=== PATIENT | male | born 1990 | race Caucasian/White ===

== ENCOUNTER 2022-12-25 10:40 | Inpatient (IN) | payer BC, OTHER ==
[~2022-12-25] VITALS: Ht 190.5 cm; Wt 114.8 kg
--- NOTE | 2022-12-25 11:10 | NUR ---
JAUNDICE NOTICED YESTERDAY
[2022-12-25] MEDS ORDERED: IV NS 0.9% 1,000 ML BAG IV ONE ×2 (11:30→13:30)
--- NOTE | 2022-12-25 11:41 | NUR ---
COVID SWAB TAKEN
[2022-12-25 11:45] LABS: BASOPHILS # (AUTO) 0.1 K/uL (0.0-0.2); BASOPHILS % (AUTO) 0.6 % (0.0-2.0); EOSINOPHILS % (AUTO) 0.2 % (0.0-6.0); HEMATOCRIT 39 % (39-51); LYMPHOCYTES # (AUTO) 0.5 K/uL (0.8-4.8); LYMPHOCYTES % (AUTO) 6.1 % (20.0-44.0); MEAN CORPUSCULAR HGB CONC 36 g/dl (31.0-36.0); MEAN CORPUSCULAR VOLUME 106 fL (80-96); MONOCYTES # (AUTO) 0.5 K/uL (0.1-1.30); MONOCYTES % (AUTO) 5.8 % (2.0-12.0); NEUTROPHILS # (AUTO) 7.7 K/uL (1.8-8.9); NEUTROPHILS % (AUTO) 87.3 % (43.0-81.0); PLATELET COUNT (AUTO) 245 K/uL (150-450); RED BLOOD CELL COUNT(AUTO) 3.71 MIL/uL (4.5-6.0); WHITE BLOOD COUNT (AUTO) 8.8 K/uL (4.3-11.0)
[2022-12-25 12:10] LABS: ALANINE AMINOTRANSFERASE 75 U/L (12-78); ALBUMIN 2.2 g/dL (3.4-5.0); ALKALINE PHOSPHATASE 447 U/L (46-116); ASPARTATE AMINOTRANSFERASE 635 U/L (15-37); BILIRUBIN,DIRECT 20.8 mg/dL (0.0-0.2); BILIRUBIN,TOTAL 25.7 mg/dL (0.2-1.0); CALCIUM, SERUM 8.2 mg/dL (8.5-10.1); CARBON DIOXIDE 27 mmol/L (21-32); CREATININE 0.8 mg/dL (0.6-1.3); GLUCOSE 106 mg/dL (74-106); LIPASE 830 U/L (73-393); UREA NITROGEN, BLOOD 5 mg/dL (7-18)
[2022-12-25] MEDS ORDERED: IOHEXOL-300 100 ML VIAL IV ONE (12:31)
[2022-12-25] MEDS ORDERED: IV NS 0.9% 250 ML IV ONE (12:32)
[2022-12-25 13:02] LABS: CHLORIDE 73 mmol/L (98-107)
[2022-12-25 13:04] LABS: POTASSIUM 2.6 mmol/L (3.5-5.1)
[2022-12-25 13:15] LABS: SODIUM SERUM 115 mmol/L (136-145)
[2022-12-25] MEDS ORDERED: POTASSIUM CHLORIDE 20 MEQ POWDER PACKET PO ONE (13:30)
[2022-12-25] MEDS ORDERED: Calcium Gluconate 1GM/10ML 4.65 MEQ in IV NS 0.9% 100 ML IV ONE (13:30)
[2022-12-25] MEDS ORDERED: POTASSIUM CHLORIDE 20 MEQ POWDER PACKET ONE (14:22)
[2022-12-25 15:30] LABS: LYMPHOCYTES % (MANUAL) 5 % (16-48); MONOCYTES % (MANUAL) 5 % (0-11.0); NEUTROPHILS % (MANUAL) 90 (42-76)
[2022-12-25] MEDS ORDERED: ZOLPIDEM TARTRATE 5 MG TABLET PO PRN (17:00)
[2022-12-25] MEDS ORDERED: MAGNESIUM HYDROXIDE 30 ML UDC PO PRN (17:00)
[2022-12-25] MEDS ORDERED: MAG HYDROX/AL HYDROX/SIMETH 30 ML UDC PO PRN (17:00)
[2022-12-25] MEDS ORDERED: ACETAMINOPHEN 325 MG TABLET PO PRN (17:00)
[2022-12-25] MEDS ORDERED: Z GUARD REMEDY 4 OZ OINT TP PRN (17:00)
[2022-12-25] MEDS ORDERED: ONDANSETRON HCL/PF 4 MG/2 ML VIAL IVP PRN (17:00)
[2022-12-25 17:43] LABS: CALCIUM, SERUM 7.7 mg/dL (8.5-10.1); CREATININE 0.8 mg/dL (0.6-1.3); POTASSIUM 3.3 mmol/L (3.5-5.1)
--- NOTE | 2022-12-25 18:20 | NUR ---
BED 119-1
[2022-12-25] MEDS ORDERED: LORAZEPAM INJ 2 MG/ML VIAL IV PRN (19:00)
--- NOTE | 2022-12-25 19:22 | NUR ---
admitting informed about bed assignment
--- NOTE | 2022-12-25 19:40 | NUR ---
CALLED THE NURSE, WANT TO GET REPORT AFTER CHANGE OF SHIFT.
--- NOTE | 2022-12-25 19:50 | NUR ---
report given to jonny
--- NOTE | 2022-12-25 19:52 | NUR ---
RECEIVED REPORT FROM HECTOR STOVALL
--- NOTE | 2022-12-25 19:59 | NUR ---
transferred to first floor under acls
[2022-12-25 20:00] VITALS: BP 130/79
--- NOTE | 2022-12-25 20:05 | NUR ---
ADMISSION NOTES ADMITTED A 32-YEAR-OLD MALE PATIENT VIA GURNEY, ACCOMPANIED BY 2 ED PERSONNEL WITH PRIMARY DIAGNOSIS OF LIVER FAILURE. PATIENT IS AAO X4, ON ROOM AIR, BREATHING EVEN AND UNLABORED. IV ACCESS ON RIGHT WRIST #20, INATCT AND FLUSHING WELL. ON TELE MONITOR ST WITH HR OF 110. PATIENT IS AMBULATORY WITH [facility]. SKIN ASSESSMENT DONE, INTACT, BUT HAS PSORIASIS ON MOST PARTS OF HIS BODY. DENIES PAIN AT THIS TIME. BELONGINGS CHECKED AND LIST PLACED ON THE CHART, VS TAKEN AND RECORDED. SAFETY PRECAUTIONS IN PLACE: BED LOCKED AND IN LOWEST POSITION, SIDE RAILS UP X2, CALL LIGHT WITHIN REACH.
[2022-12-25] MEDS: IV NS 0.9% 1,000 ML IV PRN (20:40)
[2022-12-25] MEDS: PANTOPRAZOLE 40 MG VIAL IV SCH (20:40)
[2022-12-26] VITALS: BP 106/66
[2022-12-26] MEDS: IV NS 0.9% 1,000 ML IV PRN ×2 (03:53→12:29)
[2022-12-26 04:00] VITALS: BP 100/54
[2022-12-26 06:10] LABS: BASOPHILS # (AUTO) 0.1 K/uL (0.0-0.2); BASOPHILS % (AUTO) 1.4 % (0.0-2.0); EOSINOPHILS % (AUTO) 0.3 % (0.0-6.0); HEMATOCRIT 34 % (39-51); HEMOGLOBIN 12.2 g/dL (13.5-17.5); LYMPHOCYTES # (AUTO) 0.7 K/uL (0.8-4.8); LYMPHOCYTES % (AUTO) 9.4 % (20.0-44.0); MEAN CORPUSCULAR HGB CONC 36 g/dl (31.0-36.0); MEAN CORPUSCULAR VOLUME 107 fL (80-96); MONOCYTES # (AUTO) 0.5 K/uL (0.1-1.30); MONOCYTES % (AUTO) 7.3 % (2.0-12.0); NEUTROPHILS % (AUTO) 81.6 % (43.0-81.0); PLATELET COUNT (AUTO) 192 K/uL (150-450); RED BLOOD CELL COUNT(AUTO) 3.19 MIL/uL (4.5-6.0); WHITE BLOOD COUNT (AUTO) 7.4 K/uL (4.3-11.0)
[2022-12-26 06:26] LABS: ALBUMIN 1.7 g/dL (3.4-5.0); BILIRUBIN,TOTAL 20.9 mg/dL (0.2-1.0); CALCIUM, SERUM 7.8 mg/dL (8.5-10.1); MAGNESIUM 1.3 mg/dL (1.8-2.4); PHOSPHORUS 2.2 mg/dL (2.5-4.9); TOTAL PROTEIN, SERUM 5.8 g/dL (6.4-8.2)
--- NOTE | 2022-12-26 07:04 | NUR ---
BRANCH OR DEPARTMENT CHIEF LIBRARIAN CLOSING NOTE PATIENT ASLEEP, BUT EASY TO AROUSE, AAO X4, ON ROOM AIR, BREATHING EVEN AND UNLABORED. IV ACCESS ON RIGHT WRIST #20G, INTACT AND FLUSHING WELL, INFUSING NS AT 150 ML/HR. ON TELE MONITOR ST WITH HR OF 110. PATIENT IS AMBULATORY WITH [facility]. DENIES PAIN AT THIS TIME. ALL DUE MEDS WERE GIVEN AND NEEDS ATTENDED. SAFETY PRECAUTIONS MAINTAINED: BED LOCKED AND IN LOWEST POSITION, SIDE RAILS UP X2, CALL LIGHT WITHIN REACH. WILL ENDORSE TO ONCOMING NURSE FOR JORDI.
--- NOTE | 2022-12-26 07:05 | NUR ---
TRADING FLOOR OPERATOR CLOSING NOTE RECEIVED PATIENT IN BED ASLEEP BUT EASILY AROUSABLE, AAO X4, ON ROOM AIR, BREATHING EVEN AND UNLABORED. IV ACCESS ON RIGHT WRIST #20G, INTACT AND FLUSHING WELL, INFUSING NS AT 150 ML/HR. ON TELE MONITOR ST . PATIENT IS AMBULATORY WITH [facility]. DENIES PAIN AT THIS TIME. . SAFETY PRECAUTIONS MAINTAINED: BED LOCKED AND IN LOWEST POSITION, SIDE RAILS UP X2, CALL LIGHT WITHIN REACH. WILL MONITOR.
[2022-12-26 08:00] VITALS: BP 101/64
[2022-12-26] MEDS ORDERED: CHLORDIAZEPOXIDE HCL 25 MG CAPSULE PO ONE (09:00)
[2022-12-26] MEDS: PANTOPRAZOLE 40 MG VIAL IV SCH ×2 (09:12→21:37)
--- NOTE | 2022-12-26 10:12 | NUR ---
SW Consult: SW consult requested for patient possible substance abuse. Patient was brought in due to Liver Failure. Patient presented with a flat affect. He was making minimal eye contact. Patient presents alert and oriented x3 (self,place,time). Patient reported he was brought to the hospital due to overdrinking. Patient reported that he has been drinking the since the age of 14 and has been drinking vodka everyday. 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 He stated that he lives home alone located at [address], [place] [address]; ([phone]). Patient was vague with his answers he said "yes or no". He stated that he will stop drinking and is deciding to quit. SW assessed for suicidal or homicidal, pt denied. SW assessed any hallucinations visual/auditory, pt denied. SW assessed for substance abuse and pt expressed that he drinks daily. Pt denied any use of drugs. SW offered pt resources and pt was accepting of substance abuse referrals. DC Plan: Patient will dc back home when stable [address], [place] [address]; ([phone]). Substance Abuse resources provided included: [facility] Substance Abuse Self-Helpline ([facility]) ; [facility] [address] [facility] [place] [id number] ; [facility] [address] [facility] [address] ; [facility] [address] [facility] [address] ; [facility] [address] [facility] [address] ; [facility] [address] [address] ; [facility] [address] [facility] [address] ; [facility] Substance Abuse Helpline([facility] ; [facility] ; [facility] [place]; [facility] [place]; [facility] [place]; [facility] [place]; [facility] [place]; [facility] Cyn[place]; [facility], [facility]. Elijah Helton; Alcoholics Anonymous -[facility]; [facility] ; Marijuana Anonymous [facility]; Narcotics Anonymous www.na.org;
[2022-12-26] MEDS: POTASSIUM CL. PREMIX PERIPHER. 50 ML IV SCH ×6 (10:39→16:00)
[2022-12-26] MEDS: Magnesium 1GM/D5W 100ML PREMIX 100 ML IV SCH ×4 (10:39→13:39)
[2022-12-26 12:00] VITALS: BP 111/75
[2022-12-26] MEDS ORDERED: LACTULOSE 10 G/15 ML UDC (PYXIS) PO ONE (12:00)
[2022-12-26] MEDS ORDERED: Sodium Phosphate 15 MMOL in IV NS 0.9% 245 ML IV ONE (13:00)
[2022-12-26 16:00] VITALS: BP 117/72
[2022-12-26] MEDS ORDERED: NA PHOS,M-B/NA PHOS,DI-BA 1 EA ENEMA RC ONE (17:15)
--- NOTE | 2022-12-26 19:30 | NUR ---
POULTRY FEED SUPERVISOR OPENING NOTE RECEIVED PATIENT IN BED, AWAKE, AAO X4, ON ROOM AIR, BREATHING EVEN AND UNLABORED. IV ACCESS ON RIGHT WRIST #20G, INTACT AND FLUSHING WELL, INFUSING NS AT 150 ML/HR. ON TELE MONITOR ST/SR. PATIENT IS AMBULATORY WITH [facility]. DENIES PAIN AT THIS TIME. SAFETY PRECAUTIONS IN PLACE: BED LOCKED AND IN LOWEST POSITION, SIDE RAILS UP X2, CALL LIGHT WITHIN REACH.
--- NOTE | 2022-12-26 19:42 | NUR ---
OFFICE EQUIPMENT TECHNICIAN CLOSING NOTE PATIENT in bed awake, AAO X4, ON ROOM AIR, BREATHING EVEN AND UNLABORED. IV ACCESS ON RIGHT WRIST #20G, INTACT AND FLUSHING WELL, INFUSING NS AT 150 ML/HR. ON TELE MONITOR ST/SR. PATIENT IS AMBULATORY WITH [facility]. DENIES PAIN AT THIS TIME. ALL DUE MEDS WERE GIVEN AND NEEDS ATTENDED. SAFETY PRECAUTIONS MAINTAINED: BED LOCKED AND IN LOWEST POSITION, SIDE RAILS UP X2, CALL LIGHT WITHIN REACH. WILL ENDORSE TO ONCOMING NURSE FOR JORDI.
[2022-12-26 20:00] VITALS: BP 107/72
[2022-12-27] VITALS: BP 121/81
[2022-12-27 04:00] VITALS: BP 118/94
[2022-12-27 06:23] LABS: BASOPHILS % (AUTO) 0.3 % (0.0-2.0); EOSINOPHILS % (AUTO) 1.5 % (0.0-6.0); HEMATOCRIT 34 % (39-51); HEMOGLOBIN 12.1 g/dL (13.5-17.5); LYMPHOCYTES # (AUTO) 0.8 K/uL (0.8-4.8); LYMPHOCYTES % (AUTO) 8.2 % (20.0-44.0); MEAN CORPUSCULAR HGB CONC 36 g/dl (31.0-36.0); MEAN CORPUSCULAR VOLUME 107 fL (80-96); MONOCYTES # (AUTO) 0.6 K/uL (0.1-1.30); MONOCYTES % (AUTO) 6.2 % (2.0-12.0); NEUTROPHILS # (AUTO) 7.8 K/uL (1.8-8.9); NEUTROPHILS % (AUTO) 83.8 % (43.0-81.0); PLATELET COUNT (AUTO) 196 K/uL (150-450); RED BLOOD CELL COUNT(AUTO) 3.14 MIL/uL (4.5-6.0); WHITE BLOOD COUNT (AUTO) 9.3 K/uL (4.3-11.0)
[2022-12-27 06:50] LABS: ALBUMIN 1.6 g/dL (3.4-5.0); BILIRUBIN,TOTAL 21.7 mg/dL (0.2-1.0); CALCIUM, SERUM 7.5 mg/dL (8.5-10.1); MAGNESIUM 1.8 mg/dL (1.8-2.4); TOTAL PROTEIN, SERUM 5.8 g/dL (6.4-8.2)
--- NOTE | 2022-12-27 07:21 | NUR ---
BAFFLE INSTALLER CLOSING NOTE PATIENT IN BED, AWAKE, AAO X4, ON ROOM AIR, BREATHING EVEN AND UNLABORED. IV ACCESS ON RIGHT WRIST #20G, INTACT AND FLUSHING WELL, INFUSING NS AT 150 ML/HR. ON TELE MONITOR ST/SR. PATIENT IS AMBULATORY WITH [facility]. DENIES PAIN AT THIS TIME. SAFETY PRECAUTIONS IN PLACE: BED LOCKED AND IN LOWEST POSITION, SIDE RAILS UP X2, CALL LIGHT WITHIN REACH. WILL ENDORSE TO ONCOMING NURSE FOR JORDI.
[2022-12-27 07:27] LABS: POTASSIUM 2.7 mmol/L (3.5-5.1)
--- NOTE | 2022-12-27 07:30 | NUR ---
MANAGEMENT PROFESSIONAL OPENING NOTES RECEIVED PATIENT ON BED AWAKE AND A/O X4. ON ROOM AIR TOLERATING WELL. NO SOB NOTED. NOT IN DISTRESS. WITH NO COMPLAINTS OF PAIN OR DISCOMFORT AT THIS TIME. ON TELE MONITOR CURRENTLY READING SINUS TACHYCARDIA AT 102BPM. WITH IV ACCESS AT THE RIGHT WRIST G20 WITH IVF NS AT 150ML/HR INFUSING WELL. WITH GENERALIZED JAUNDICE SKIN AND YELLOWISH CONJUNCTIVA OF THE EYES. SAFETY MEASURES IN PLACED. CALL LIGHT WITHIN REACH. BED ON LOWEST LOCKED POSITION, SIDE RAILS UP X2. WILL CONTINUE TO MONITOR.
[2022-12-27 08:00] VITALS: BP 112/74
[2022-12-27] MEDS: PANTOPRAZOLE 40 MG VIAL IV SCH ×2 (09:45→21:44)
[2022-12-27 12:00] VITALS: BP 105/65
[2022-12-27 16:00] VITALS: BP 114/66
[2022-12-27] MEDS ORDERED: POTASSIUM CHLORIDE 10 MEQ/50 ML PREMIXED IVPB FOR PERIPHERAL LINE IV SCH (17:30)
[2022-12-27] MEDS: POTASSIUM CHLORIDE 10 MEQ/50 ML PREMIXED IVPB FOR PERIPHERAL LINE IV SCH ×4 (18:45→22:08)
[2022-12-27] MEDS: IV NS 0.9% 1,000 ML IV PRN (19:03)
--- NOTE | 2022-12-27 19:30 | NUR ---
LOAN ASSISTANT CLOSING NOTES PATIENT ON BED AWAKE AND A/O X4. ON ROOM AIR TOLERATING WELL. NO SOB NOTED. NOT IN DISTRESS. WITH NO COMPLAINTS OF PAIN OR DISCOMFORT AT THIS TIME. ON TELE MONITOR CURRENTLY READING SINUS TACHYCARDIA AT 107BPM. WITH IV ACCESS AT THE RIGHT WRIST G20 WITH IVF NS AT 150ML/HR INFUSING WELL. STARTED 1ST BAG OF POTASSIUM CHLORIDE 10MEQ IV. WITH GENERALIZED JAUNDICE SKIN AND YELLOWISH CONJUNCTIVA OF THE EYES. DUE MEDS GIVEN. SAFETY MEASURES IN PLACED. CALL LIGHT WITHIN REACH. BED ON LOWEST LOCKED POSITION, SIDE RAILS UP X2. WILL ENDORSE TO NEXT SHIFT FOR JORDI.
[2022-12-27 20:00] VITALS: BP 144/79
[2022-12-28] VITALS: BP 136/79
[2022-12-28] MEDS: POTASSIUM CHLORIDE 10 MEQ/50 ML PREMIXED IVPB FOR PERIPHERAL LINE IV SCH ×3 (00:02→05:18)
[2022-12-28 04:00] VITALS: BP 136/74
--- NOTE | 2022-12-28 07:25 | NUR ---
SUPERVISOR PARTIAL DENTURE DEPARTMENT OPENING NOTE RECEIVED PATIENT ON BED AWAKE. PATIENT IS ALERT/ ORIENTED X4. ON ROOM AIR TOLERATING WELL, WITH NO SIGNS OF RESPIRATORY DISTRESS. NO COMPLAINT OF PAIN OR DISCOMFORT AT THIS TIME. ON TELE MONITOR CURRENTLY READING SINUS RHYTHYM AT 98 BPM. WITH IV ACCESS AT THE RIGHT WRIST G20 WITH IVF NS AT 150ML/HR INFUSING WELL. WITH GENERALIZED JAUNDICE SKIN AND ICTERIC CONJUNCTIVA OF THE EYES. SAFETY MEASURES IN PLACED. CALL LIGHT WITHIN REACH. BED ON LOWEST LOCKED POSITION, SIDE RAILS UP X2. WILL CONTINUE WITH PLAN OF CARE.
[2022-12-28 07:40] LABS: BASOPHILS # (AUTO) 0.1 K/uL (0.0-0.2); BASOPHILS % (AUTO) 0.6 % (0.0-2.0); HEMATOCRIT 34 % (39-51); HEMOGLOBIN 11.9 g/dL (13.5-17.5); LYMPHOCYTES # (AUTO) 0.9 K/uL (0.8-4.8); MEAN CORPUSCULAR HGB CONC 36 g/dl (31.0-36.0); MEAN CORPUSCULAR VOLUME 108 fL (80-96); MONOCYTES # (AUTO) 0.6 K/uL (0.1-1.30); MONOCYTES % (AUTO) 7.5 % (2.0-12.0); NEUTROPHILS # (AUTO) 6.9 K/uL (1.8-8.9); NEUTROPHILS % (AUTO) 79.9 % (43.0-81.0); PLATELET COUNT (AUTO) 205 K/uL (150-450); WHITE BLOOD COUNT (AUTO) 8.6 K/uL (4.3-11.0)
[2022-12-28 07:51] LABS: ALBUMIN 1.6 g/dL (3.4-5.0); BILIRUBIN,TOTAL 22.2 mg/dL (0.2-1.0); CALCIUM, SERUM 7.7 mg/dL (8.5-10.1); POTASSIUM 3.1 mmol/L (3.5-5.1); TOTAL PROTEIN, SERUM 5.8 g/dL (6.4-8.2)
[2022-12-28 08:00] VITALS: BP 111/65
[2022-12-28] MEDS: PANTOPRAZOLE 40 MG VIAL IV SCH ×2 (10:11→21:30)
[2022-12-28 12:00] VITALS: BP 111/67
[2022-12-28] MEDS: POTASSIUM CL. PREMIX PERIPHER. 50 ML IV SCH ×4 (12:16→16:34)
[2022-12-28] MEDS ORDERED: POLYVINYL ALCOHOL 15 ML BOTTLE EACHEYE PRN (13:00)
--- NOTE | 2022-12-28 15:20 | NUR ---
MS RN NOTE PATIENT BACK FROM DC HIDA SCAN, PER TECH, HE WILL NEED 2 MORE HOURS TO RE-SCAN THE PATIENT. PATIENT STILL NEEDS TO BE NPO. PATIENT KEPT NPO FOR THE MEANTIME ORDERED. IN STABLE CONDITION.
[2022-12-28 16:00] VITALS: BP 113/74
[2022-12-28] MEDS: IV NS 0.9% 1,000 ML IV PRN (16:53)
--- NOTE | 2022-12-28 17:25 | NUR ---
NM HIDA SCAN WAS COMPLETED. TECH:RB
--- NOTE | 2022-12-28 19:04 | NUR ---
MS RN OPENING NOTE PATIENT ON BED AWAKE. PATIENT IS ALERT/ ORIENTED X4. ON ROOM AIR TOLERATING WELL, WITH NO SIGNS OF RESPIRATORY DISTRESS. NO COMPLAINT OF PAIN OR DISCOMFORT AT THIS TIME. IV ACCESS OUT. FOR MIDLINE INSERTION, AWAITING MIDLINE NURSE. DELAYED IVF AND KCL CORRECTION BECAUSE OF INFILTRATED IV. WITH GENERALIZED JAUNDICE SKIN AND ICTERIC CONJUNCTIVA OF THE EYES. SAFETY MEASURES IN PLACED. CALL LIGHT WITHIN REACH. BED ON LOWEST LOCKED POSITION, SIDE RAILS UP X2. WILL ENDORSE TO NEXT SHIFT FOR CONTINUITY OF CARE.
--- NOTE | 2022-12-28 19:45 | NUR ---
MS RN OPENING NOTE RECEIVED PATIENT IN BED, AWAKE, AAO X4, ON ROOM AIR, TOLERATING WELL, NO SOB/DISTRESS NOTED. NO COMPLAINT OF PAIN OR DISCOMFORT AT THIS TIME. IV ACCESS OUT. FOR MIDLINE INSERTION, AWAITING MIDLINE NURSE. DELAYED IVF AND KCL CORRECTION BECAUSE OF INFILTRATED IV. SAFETY MEASURES IN PLACE: BED LOCKED AND IN LOWEST LOCKED POSITION, CALL LIGHT WITHIN REACH, SIDE RAILS UP X2.
[2022-12-28 20:00] VITALS: BP 139/81
--- NOTE | 2022-12-28 21:30 | NUR ---
MS RN NOTE KAREN MIDLINE INSERTED BY MIDLINE NURSE, INTACT AND FLUSHES WELL.
[2022-12-29 04:00] VITALS: BP 122/72
[2022-12-29] MEDS: IV NS 0.9% 1,000 ML IV PRN ×3 (04:27→20:11)
--- NOTE | 2022-12-29 07:08 | NUR ---
MS RN CLOSING NOTE PATIENT IN BED, AWAKE, AAO X4, ON ROOM AIR, TOLERATING WELL, NO SOB/DISTRESS NOTED. NO COMPLAINT OF PAIN OR DISCOMFORT AT THIS TIME. IV ACCESS ON KAREN MIDLINE INFUSING NS AT 150 ML/HR. ALL DUE MEDS WERE GIVEN AND NEEDS ATTENDED. VSS. SAFETY MEASURES MAINTAINED: BED LOCKED AND IN LOWEST LOCKED POSITION, CALL LIGHT WITHIN REACH, SIDE RAILS UP X2. WILL ENDORSE TO ONCOMING NURSE FOR JORDI.
[2022-12-29 07:13] LABS: BASOPHILS # (AUTO) 0.3 K/uL (0.0-0.2); BASOPHILS % (AUTO) 3.9 % (0.0-2.0); EOSINOPHILS % (AUTO) 1.9 % (0.0-6.0); HEMATOCRIT 32 % (39-51); HEMOGLOBIN 11.2 g/dL (13.5-17.5); LYMPHOCYTES % (AUTO) 11.1 % (20.0-44.0); MEAN CORPUSCULAR HGB CONC 35 g/dl (31.0-36.0); MEAN CORPUSCULAR VOLUME 109 fL (80-96); MONOCYTES # (AUTO) 0.9 K/uL (0.1-1.30); MONOCYTES % (AUTO) 10.6 % (2.0-12.0); NEUTROPHILS # (AUTO) 6.3 K/uL (1.8-8.9); NEUTROPHILS % (AUTO) 72.5 % (43.0-81.0); PLATELET COUNT (AUTO) 207 K/uL (150-450); RED BLOOD CELL COUNT(AUTO) 2.92 MIL/uL (4.5-6.0); WHITE BLOOD COUNT (AUTO) 8.7 K/uL (4.3-11.0)
[2022-12-29 07:34] LABS: BILIRUBIN,DIRECT 15.8 mg/dL (0.0-0.2); BILIRUBIN,TOTAL 20.7 mg/dL (0.2-1.0); CALCIUM, SERUM 7.3 mg/dL (8.5-10.1); CREATININE 0.8 mg/dL (0.6-1.3); POTASSIUM 3.1 mmol/L (3.5-5.1); TOTAL PROTEIN, SERUM 5.3 g/dL (6.4-8.2)
[2022-12-29 07:35] LABS: ALBUMIN 1.4 g/dL (3.4-5.0)
--- NOTE | 2022-12-29 07:45 | NUR ---
MS RN OPENING NOTE RECEIVED PATIENT ON BED AWAKE. PATIENT IS ALERT/ ORIENTED X4. ON ROOM AIR TOLERATING WELL, WITH NO SIGNS OF PAIN OR DISCOMFORT AT THIS TIME. WITH GENERALIZED JAUNDICE SKIN .IV ACCESS ON R UPPER ARM MIDLINE. IV INTACT, PATENT, FLUSHES WELL. ALL SAFETY MEASURES IN PLACE. CALL LIGHT WITHIN REACH. BED ON LOWEST LOCKED POSITION,BEDSIDE TABLE NEXT TO PATIENT. SIDE RAILS UP X2.
[2022-12-29 08:00] VITALS: BP 117/70
[2022-12-29] MEDS: PANTOPRAZOLE 40 MG VIAL IV SCH ×2 (08:08→20:11)
--- NOTE | 2022-12-29 09:57 | NUR ---
star note notified RICHARD wolf that potassium 3.1. ordered 40 meq po x one time Addendum: 12/29/22 at 1049 by HOLLIE BELL RN asked if potassium can be switched to iv. richard yuen ok
[2022-12-29] MEDS ORDERED: POTASSIUM CHLORIDE 20 MEQ TAB.PRT.SR PO ONE (10:30)
[2022-12-29] MEDS: POTASSIUM CL. PREMIX PERIPHER. 50 ML IV SCH ×4 (11:07→16:58)
[2022-12-29 16:00] VITALS: BP 111/70
--- NOTE | 2022-12-29 16:24 | NUR ---
rn note pt went for MRCP wo contrast
--- NOTE | 2022-12-29 19:18 | NUR ---
MS RN CLOSING NOTE PATIENT IN BED AWAKE. PATIENT IS ALERT/ ORIENTED X4. ON ROOM AIR TOLERATING WELL, WITH 02 AT 100%. NO SIGNS OF PAIN OR DISCOMFORT AT THIS TIME. WITH GENERALIZED JAUNDICE SKIN AND ICTERIC CONJUNCTIVA OF THE EYES. R UPPER ARM MIDLINE. IV INTACT, PATENT, FLUSHES WELL. ALL SAFETY MEASURES IN PLACE. CALL LIGHT WITHIN REACH. BED ON LOWEST LOCKED POSITION,BEDSIDE TABLE NEXT TO PATIENT.BED ALARM ON. SIDE RAILS UP X2. ENDORSED TO BUS MATRON RN FOR CONUTITY OF CARE
--- NOTE | 2022-12-29 19:45 | NUR ---
MS RN OPENING NOTE RECEIVED PATIENT IN BED, AWAKE, AAO X4, ON ROOM AIR TOLERATING WELL. NO SIGNS OF PAIN OR DISCOMFORT AT THIS TIME. WITH GENERALIZED JAUNDICE SKIN AND ICTERIC CONJUNCTIVA. KAREN MIDLINE RUNNING NS AT 150 ML/HR, INTACT, AND FLUSHES WELL. ALL SAFETY MEASURES IN PLACE: BED LOCKED AND IN LOWEST POSITION, CALL LIGHT WITHIN REACH, SIDE RAILS UP X2.
[2022-12-29 20:00] VITALS: BP 100/71
[2022-12-30 02:42] LABS: BILIRUBIN,URINE 3+ (NEGATIVE); COLOR,URINE AMBER (YELLOW); LEUKOCYTE ESTERASE ,URINE NEGATIVE (NEGATIVE); NITRITE, URINE NEGATIVE (NEGATIVE); PROTEIN,URINE NEGATIVE (NEGATIVE); UGLUCOSE TRACE mg/dL (NEGATIVE); UROBILINOGEN,URINE 0.2 EU/dL (0.2)
[2022-12-30 02:47] LABS: BACTERIA,URINE Rare /HPF (None Seen); RBC,URINE 0-2 /HPF (0-2); SQUAMOUS EPITHELIAL CELL,UR Few /HPF (None Seen); WBC,URINE 0-2 /HPF (0-3)
[2022-12-30] MEDS: IV NS 0.9% 1,000 ML IV PRN ×3 (03:12→17:37)
[2022-12-30 04:00] VITALS: BP 123/74
[2022-12-30 06:26] LABS: BASOPHILS # (AUTO) 0.2 K/uL (0.0-0.2); BASOPHILS % (AUTO) 2.4 % (0.0-2.0); EOSINOPHILS % (AUTO) 2.7 % (0.0-6.0); HEMATOCRIT 32 % (39-51); HEMOGLOBIN 11.2 g/dL (13.5-17.5); LYMPHOCYTES # (AUTO) 0.9 K/uL (0.8-4.8); LYMPHOCYTES % (AUTO) 10.6 % (20.0-44.0); MEAN CORPUSCULAR HGB CONC 35 g/dl (31.0-36.0); MEAN CORPUSCULAR VOLUME 110 fL (80-96); MONOCYTES # (AUTO) 1.1 K/uL (0.1-1.30); MONOCYTES % (AUTO) 11.8 % (2.0-12.0); NEUTROPHILS # (AUTO) 6.4 K/uL (1.8-8.9); NEUTROPHILS % (AUTO) 72.5 % (43.0-81.0); PLATELET COUNT (AUTO) 214 K/uL (150-450); RED BLOOD CELL COUNT(AUTO) 2.89 MIL/uL (4.5-6.0); WHITE BLOOD COUNT (AUTO) 8.9 K/uL (4.3-11.0)
[2022-12-30 06:37] LABS: BILIRUBIN,TOTAL 20.9 mg/dL (0.2-1.0); CALCIUM, SERUM 7.5 mg/dL (8.5-10.1); CREATININE 0.8 mg/dL (0.6-1.3); POTASSIUM 3.2 mmol/L (3.5-5.1); TOTAL PROTEIN, SERUM 5.4 g/dL (6.4-8.2)
[2022-12-30 06:41] LABS: ALBUMIN 1.4 g/dL (3.4-5.0)
--- NOTE | 2022-12-30 07:04 | NUR ---
MS RN CLOSING NOTE PATIENT IN BED, AWAKE, AAO X4, ON ROOM AIR TOLERATING WELL. NO SIGNS OF PAIN OR DISCOMFORT AT THIS TIME. WITH GENERALIZED JAUNDICE SKIN AND ICTERIC CONJUNCTIVA. KAREN MIDLINE RUNNING NS AT 150 ML/HR, INTACT, AND FLUSHES WELL. PATIENT IS AMBULATORY WITH [facility]. ALL DUE MEDS WERE GIVEN AND NEEDS ATTENDED. SAFETY MEASURES IN PLACE: BED LOCKED AND IN LOWEST POSITION, CALL LIGHT WITHIN REACH, SIDE RAILS UP X2. WILL ENDORSE TO ONCOMING NURSE FOR JORDI.
[2022-12-30 08:00] VITALS: BP 109/69
[2022-12-30 09:07] LABS: HEPATITIS Be AB Negative (Negative)
[2022-12-30] MEDS: PANTOPRAZOLE 40 MG VIAL IV SCH (10:20)
[2022-12-30] MEDS: CALCIUM CARB 600MG /VIT D 1 EACH TABLET PO SCH (10:20)
[2022-12-30] MEDS: POTASSIUM CHLORIDE 20 MEQ TAB.PRT.SR PO SCH ×2 (13:10→15:06)
[2022-12-30 16:00] VITALS: BP 114/72
--- NOTE | 2022-12-30 19:18 | NUR ---
MS RN CLOSING NOTE PATIENT IN BED, AWAKE, AO X4, ON ROOM AIR TOLERATING WELL. NO SIGNS OF PAIN OR DISCOMFORT AT THIS TIME. GENERALIZED JAUNDICE SKIN WITH PSORIASIS. KAREN MIDLINE RUNNING NS AT 150 ML/HR, INTACT, AND FLUSHES WELL. PATIENT IS AMBULATORY WITH [facility]. ALL DUE MEDS WERE GIVEN AND NEEDS ATTENDED. SAFETY MEASURES IN PLACE: BED LOCKED AND IN LOWEST POSITION, CALL LIGHT WITHIN REACH, SIDE RAILS UP X2. WILL ENDORSE TO ONCOMING NURSE FOR JORDI.
--- NOTE | 2022-12-30 19:30 | NUR ---
MS RN OPENING NOTE RECEIVED PATIENT RESTING IN BED. AFEBRILE AND NOT IN ANY FORM OF ACUTE DISTRESS. BREATHING EVEN AND NON LABORED. NO C/O PAIN OR DISCOMFORT AT THIS TIME. WITH IV ACCESS ON KAREN MIDLINE RUNNING WITH NS AT 150ML/HR. MAINTAINED ON FULL LIQUID DIET ORDERED. SAFETY MEASURES IN PLACE. KEPT BED IN LOCKED AND IN LOW POSITION. SIDE RAILS UP X2. ADVISED TO USE THE CALL LIGHT WHEN IN NEED OF ASSISTANCE.
[2022-12-30 20:00] VITALS: BP 118/83
[2022-12-30] MEDS: PANTOPRAZOLE 40 MG TABLET.DR PO SCH (20:17)
[2022-12-31] MEDS: IV NS 0.9% 1,000 ML IV PRN ×2 (00:03→06:36)
[2022-12-31 04:00] VITALS: BP 117/72
--- NOTE | 2022-12-31 06:27 | NUR ---
MS RN CLOSING NOTE PATIENT IN BED, ASLEEP BUT EASY TO AROUSE AND RESPONSIVE. ABLE TO MAKE NEEDS KNOWN. AFEBRILE AND NOT IN ANY FORM OF ACUTE DISTRESS. BREATHING EVEN AND NON LABORED. NO C/O PAIN OR DISCOMFORT THROUGHOUT THE SHIFT. WITH IV ACCESS ON KAREN MIDLINE RUNNING WITH NS AT 150ML/HR. MAINTAINED ON FULL LIQUID DIET ORDERED. MEDICATED ORDERED. SAFETY MEASURES IN PLACE. KEPT BED IN LOCKED AND IN LOW POSITION. SIDE RAILS UP X2. ADVISED TO USE THE CALL LIGHT WHEN IN NEED OF ASSISTANCE. ALL NURSING NEEDS ATTENDED. ENDORSED TO INCOMING SHIFT FOR CONTINUITY OF CARE.
[2022-12-31 06:29] LABS: BASOPHILS # (AUTO) 0.2 K/uL (0.0-0.2); BASOPHILS % (AUTO) 1.9 % (0.0-2.0); EOSINOPHILS % (AUTO) 2.3 % (0.0-6.0); HEMATOCRIT 32 % (39-51); HEMOGLOBIN 11.3 g/dL (13.5-17.5); LYMPHOCYTES # (AUTO) 1.1 K/uL (0.8-4.8); LYMPHOCYTES % (AUTO) 12.7 % (20.0-44.0); MEAN CORPUSCULAR HGB CONC 35 g/dl (31.0-36.0); MEAN CORPUSCULAR VOLUME 110 fL (80-96); MONOCYTES # (AUTO) 1.2 K/uL (0.1-1.30); MONOCYTES % (AUTO) 13.7 % (2.0-12.0); NEUTROPHILS # (AUTO) 5.9 K/uL (1.8-8.9); NEUTROPHILS % (AUTO) 69.4 % (43.0-81.0); PLATELET COUNT (AUTO) 226 K/uL (150-450); RED BLOOD CELL COUNT(AUTO) 2.95 MIL/uL (4.5-6.0); WHITE BLOOD COUNT (AUTO) 8.5 K/uL (4.3-11.0)
[2022-12-31 07:28] LABS: BILIRUBIN,TOTAL 20.3 mg/dL (0.2-1.0); CALCIUM, SERUM 7.6 mg/dL (8.5-10.1); CREATININE 0.8 mg/dL (0.6-1.3); POTASSIUM 3.1 mmol/L (3.5-5.1); TOTAL PROTEIN, SERUM 5.3 g/dL (6.4-8.2)
[2022-12-31 07:59] LABS: ALBUMIN 1.4 g/dL (3.4-5.0)
--- NOTE | 2022-12-31 08:00 | NUR ---
MS RN OPENING NOTE PATIENT IN BED AWAKE, ABLE TO MAKE NEEDS KNOWN. AFEBRILE AND NOT IN ANY FORM OF ACUTE DISTRESS. ON ROOMA AIR, BREATHING EVEN AND NON LABORED. NO C/O PAIN OR DISCOMFORT AT THIS MOMENT. WITH IV ACCESS ON KAREN MIDLINE PATENT AND INTACT, FLUSHES WELL, RUNNING WITH NS AT 150ML/HR. MAINTAINED ON FULL LIQUID DIET ORDERED. SAFETY MEASURES IN PLACE. KEPT BED IN LOCKED AND IN LOW POSITION. SIDE RAILS UP X2. ADVISED TO USE THE CALL LIGHT WHEN IN NEED OF ASSISTANCE. PATIENT IS AMBULATORY. PLAN OF CARE CONTINUE.
[2022-12-31] MEDS: CALCIUM CARB 600MG /VIT D 1 EACH TABLET PO SCH (08:03)
[2022-12-31] MEDS: PANTOPRAZOLE 40 MG TABLET.DR PO SCH (08:03)
[2022-12-31 12:00] VITALS: BP 116/79
[2022-12-31] MEDS ORDERED: POTASSIUM CHLORIDE 20 MEQ POWDER PACKET NG SCH (12:00)
[2022-12-31] MEDS ORDERED: POTASSIUM CHLORIDE 20 MEQ POWDER PACKET PO SCH (12:30)
[2022-12-31] MEDS ORDERED: prednisoLONE 15 MG/5 ML UDC PO SCH (15:00)
[2022-12-31] MEDS ORDERED: SPIRONOLACTONE 25 MG TABLET PO SCH (15:00)
[2022-12-31] MEDS ORDERED: SPIR25TA6 PO (15:09)
[2022-12-31] MEDS ORDERED: PRED20SO PO (15:09)
[2022-12-31] MEDS ORDERED: CEPH500C2 PO (16:55)
--- NOTE | 2022-12-31 17:00 | NUR ---
DISCHARGE SUMMARY INSTRUCTIONS REVIEWED WITH THE PATIENT AND FRIEND AT THE BEDSIDE, CONFIRMED UNDERSTANDING, SEEN BY ABIGAIL JOSHI NP AT THE BEDSIDE WITH RIGHT HAND WOUND, WITH NEW ORDER FRO BACTROBAN, PATIENT CONFIRMED UNDERSTANDING. DISCHARGE PAPER WORKS AND INVENTORY LIST. SIGNED BY THE PATIENT, MIDLINE REMOVED PRIOR TO DC, PATIENT TOLERATED. RELEASED ALL PERSONAL BELONGINGS TO THE PATIENT AND DISCHARGE PAPER WORKS. PATIENT WHEELED TO THE ENTRANCE. PATIENT IS GOING HOME VIA PRIVATE CAR.
== END 2022-12-31 17:07 | disposition home or self-care (01) | DRG 441 ==
LOC: ER 10:50 → TELE1 19:24 → MEDSG1 12-28 14:20
PROVIDERS: ADMIT Nurse Practitioner Acute Care; ATTEND Nurse Practitioner Family
PROC: 05HD33Z Insertion of Infusion Device into Right Cephalic Vein, Percutaneous Approach (ICD-10-PCS; principal; 2022-12-28)
DX: B17.9 Acute viral hepatitis, unspecified (principal); K83.1 Obstruction of bile duct; K85.90 Acute pancreatitis without necrosis or infection, unspecified; E44.0 Moderate protein-calorie malnutrition; E87.1 Hypo-osmolality and hyponatremia; J98.11 Atelectasis; Z20.822 Contact with and (suspected) exposure to COVID-19; F10.10 Alcohol abuse, uncomplicated; I10 Essential (primary) hypertension; Y90.9 Presence of alcohol in blood, level not specified; E80.6 Other disorders of bilirubin metabolism; E86.1 Hypovolemia; E83.51 Hypocalcemia; E88.09 Other disorders of plasma-protein metabolism, not elsewhere classified; K82.9 Disease of gallbladder, unspecified; E87.6 Hypokalemia; K76.0 Fatty (change of) liver, not elsewhere classified; R74.01 Elevation of levels of liver transaminase levels; R16.1 Splenomegaly, not elsewhere classified; Z68.31 Body mass index [BMI] 31.0-31.9, adult
CPT/HCPCS: 36415; 71045-TC; 74181-TC; 78226; 80048-TC; 80053-TC; 80076-TC; 81001; 83690-TC; 83735-TC; 84100-TC; 84484-TC; 85025-TC; 85610-TC; 86704; 86705; 86706; 86707; 86803; 87081-TC; 87340; 87350; A4223; A6253; A6403; A9537; A9563; C9113; C9803; G0378; J0610; J2060; J3475; J3480; J7030; J7050; J7510; Q9967